=== PATIENT | male | born 1960 | race Caucasian/White ===

== ENCOUNTER 2017-03-25 08:51 | Day surgery (SDC) | payer OTHER ==
[2017-03-24 15:03] VITALS: BMI 31.5
[2017-03-25] MEDS ORDERED: Fentanyl 100 MCG/2 ML VIAL ONE (11:51)
[2017-03-25] MEDS ORDERED: Bacitracin Zinc Ointment 30 gm TUBE ONE (11:58)
[2017-03-25] MEDS ORDERED: Lidocaine 1% w/Epinephrine 1:200K 30 ML VIAL ONE (11:58)
[2017-03-25] MEDS ORDERED: Tobramycin/Dexamethasone Ophth Oint 3.5 GM TUBE ONE (11:58)
[2017-03-25] MEDS ORDERED: PHENYLEPHRINE-NS 100 MCG/ML 10 ML SYRINGE ONE (13:10)
[2017-03-25] MEDS ORDERED: Ondansetron HCl/PF 4 MG/2 ML Vial ONE (13:10)
[2017-03-25] MEDS ORDERED: Lidocaine 1% PF 5 ML VIAL ONE (13:10)
[2017-03-25] MEDS ORDERED: Propofol 200 MG/20 ML VIAL ONE (13:10)
--- NOTE | 2017-03-26 11:43 | OP ---
DATE OF PROCEDURE: 03/25/2017 PREOPERATIVE DIAGNOSIS: Right level V neck mass. POSTOPERATIVE DIAGNOSES: Right level V neck mass. PROCEDURE: Excisional biopsy of right level V neck mass. SURGEON: Philippe Fierro M.D. ESTIMATED BLOOD LOSS: Less than 5 mL. COMPLICATIONS: None. ANESTHESIA: LMA. DESCRIPTION OF PROCEDURE: The patient taken to the operating room. LMA anesthesia was obtained by t Anesthesia staff. The head was gently turned to left exposing the right neck. Neck was prepped a nd draped in standard surgical procedure. The nearly subcutaneous fat in deep cervical node that had been markedly sclerotic and calcified after uncinate was slightly displaced within the soft tissue a nd therefore, an elliptical incision was made including skin and subcutaneous tissue along with the u nderlying mass which had turned into more of the fiberoptic lesion with intermittent scattered areas of small lymph nodes. This entire area approximately 2 x 3 cm was resected down to the deep neck mus culature. Following this, the wound was irrigated and was closed using Monocryl stitches and Dermabo nd on the skin. The patient tolerated the procedure well.
== END 2017-03-25 15:30 | disposition home or self-care (01) ==
LOC: SDC 08:51
PROVIDERS: ATTEND Otolaryngology Plastic Surgery within the Head & Neck
PROC: 0JB40ZX Excision of Right Neck Subcutaneous Tissue and Fascia, Open Approach, Diagnostic (ICD-10-PCS; principal; 2017-03-25)
DX: R22.1 Localized swelling, mass and lump, neck (principal); J45.909 Unspecified asthma, uncomplicated; I10 Essential (primary) hypertension; F17.210 Nicotine dependence, cigarettes, uncomplicated; F32.9 Major depressive disorder, single episode, unspecified; Z91.013 Allergy to seafood; Z98.818 Other dental procedure status
CPT/HCPCS: 88305; 88312; 93005; 93010; J2001; J2405; J2704; J3010

== ENCOUNTER 2024-05-18 17:57 | Inpatient (IN) | payer BC ==
[2024-05-18 20:47] VITALS: BMI 26.0
[2024-05-18] MEDS ORDERED: hydrALAZINE 20 MG/ML VIAL SLOW IVP PRN (21:57)
[2024-05-18] MEDS ORDERED: Acetaminophen 650 MG Suppository PR PRN (21:58)
[2024-05-18] MEDS ORDERED: Ondansetron ODT 4 MG TAB PO PRN (21:58)
[2024-05-18] MEDS ORDERED: Calcium Carbonate 500 MG ChewTAB PO PRN (21:58)
[2024-05-18] MEDS ORDERED: Ondansetron PF 4 MG/2 ML Vial IVP PRN (21:58)
[2024-05-19] MEDS ORDERED: Famotidine 20 MG TAB PO PRN (00:32)
[2024-05-19 03:55] LABS: #Basophils 0.05 10x3/uL (0.0-0.2); %Basophils 0.6 % (0.0-1.0); %Lymphocytes 36.1 % (21.0-51.0); %Monocytes 7.4 % (0.0-10.0); %Neutrophils 52.8 % (42.0-75.0); Hematocrit 44.5 % (42.0-52.0); Hemoglobin 14.9 g/dL (14.0-18.0); Mean Corpuscular HGB CONC 33.5 g/dL (32.0-36.0); Mean Corpuscular Hemoglobin 30.1 pg (27.0-31.0); Mean Corpuscular Volume 89.9 fL (78.0-98.0); Mean Platelet Volume 10.2 fL (7.4-10.4); Platelet Count 215 10x3/uL (130-400); RBC Distribution Width 13.2 % (11.5-14.5); Red Blood Cell (RBC) Count 4.95 mill/uL (4.70-6.10)
[2024-05-19 04:16] LABS: ALT (SGPT) Less than 7 U/L (Less than 45); AST (SGOT) 23 U/L (11-34); Albumin 3.6 g/dL (3.1-4.5); Alkaline Phosphatase 65 U/L (40-110); Anion Gap 11 mmol/L (10-20); BUN (Urea Nitrogen) 12 mg/dL (8.4-25.7); Bilirubin, Total 0.5 mg/dL (0.3-1.2); Calc. Creatinine Clearance 81 mL/min (70-130); Calcium 9.5 mg/dL (7.8-10.44); Carbon Dioxide 24 mmol/L (23-31); Cardiac Risk 4.3 (Less than 4.5); Chloride 107 mmol/L (98-107); Cholesterol 204 mg/dl (< 200 Desired); Estimated GFR 79; Globulin 2.9 g/dL (2.4-3.5); Glucose 85 mg/dL (80-115); HDL Cholesterol 48 mg/dL (>60 Neg Risk); LDL Cholesterol, Calculated 138 mg/dL; Protein, Total 6.5 g/dL (5.8-8.1); Sodium 138 mmol/L (136-145); Triglycerides 90 mg/dL (Less than 150)
[2024-05-19] MEDS: Aspirin 81 mg Enteric Coated Tablet PO SCH (08:40)
[2024-05-19] MEDS ORDERED: FLU (Fluarix Triv) TS24-25(6MOS UP)/PF 45 MCG/0.5 ML Syringe IM ONE (09:00)
[2024-05-19] MEDS: Atorvastatin Calcium 40 MG TAB PO SCH (20:53)
[2024-05-20] MEDS: Acetaminophen 325 MG TAB PO PRN (00:06)
[2024-05-20 03:58] LABS: #Basophils 0.04 10x3/uL (0.0-0.2); %Basophils 0.5 % (0.0-1.0); %Eosinophils 3.5 % (0.0-10.0); %Lymphocytes 36.3 % (21.0-51.0); %Neutrophils 53.5 % (42.0-75.0); Hematocrit 45.2 % (42.0-52.0); Hemoglobin 14.9 g/dL (14.0-18.0); Mean Corpuscular Hemoglobin 30.4 pg (27.0-31.0); Mean Corpuscular Volume 92.2 fL (78.0-98.0); Mean Platelet Volume 10.1 fL (7.4-10.4); Platelet Count 218 10x3/uL (130-400); RBC Distribution Width 13.3 % (11.5-14.5)
[2024-05-20 04:06] LABS: Hemoglobin A1c 5.2 % (4.0-6.0)
[2024-05-20 04:24] LABS: Anion Gap 13 mmol/L (10-20); BUN (Urea Nitrogen) 14 mg/dL (8.4-25.7); Calc. Creatinine Clearance 73 mL/min (70-130); Calcium 8.9 mg/dL (7.8-10.44); Carbon Dioxide 25 mmol/L (23-31); Chloride 104 mmol/L (98-107); Estimated GFR 70; Glucose 83 mg/dL (80-115); Sodium 138 mmol/L (136-145)
[2024-05-20] MEDS: Clopidogrel Bisulfate 75 MG TAB PO SCH (08:37)
[2024-05-20 16:04] VITALS: BP 120/81; TEMP 98.3
== END 2024-05-20 18:19 | disposition home or self-care (01) | DRG 64 ==
LOC: 2SE 20:15 → INTOOBSV 20:15 → OBSVTOIN 05-19 12:50
PROVIDERS: ADMIT Internal Medicine; ATTEND Internal Medicine
DX: I63.89 Other cerebral infarction (principal); R20.0 Anesthesia of skin; G93.6 Cerebral edema; G81.91 Hemiplegia, unspecified affecting right dominant side; F17.210 Nicotine dependence, cigarettes, uncomplicated; J45.909 Unspecified asthma, uncomplicated; I10 Essential (primary) hypertension; Z79.899 Other long term (current) drug therapy; Z79.82 Long term (current) use of aspirin
CPT/HCPCS: 36415; 70551; 80048; 80053; 80061; 83036; 85025; 93306; 93880